=== PATIENT | female | born 1985 | race Hispanic/Latino ===

== ENCOUNTER 2022-08-03 08:43 | Emergency (ER) | payer BC, MEDICAID, SELFPAY ==
[2022-08-03] MEDS ORDERED: Acetaminophen 500 MG TAB ONE (13:17)
== END 2022-08-03 13:07 | disposition home or self-care (01) ==
LOC: CSHERS 08:43
DX: J11.1 Influenza due to unidentified influenza virus with other respiratory manifestations (principal); L03.312 Cellulitis of back [any part except buttock and flank]
CPT/HCPCS: 87804; 99283